=== PATIENT | female | born 1940 | race Caucasian/White ===

== ENCOUNTER 2021-09-26 14:35 | Observation (INO) | payer OTHER ==
[2021-09-26] MEDS: SODIUM CHLORIDE 1,000 ML IV SCH (15:00)
[2021-09-26 15:21] LABS: BASO % 0.8 % (0-2.0); EOS % 0.8 % (0-4.5); HEMATOCRIT 37.1 % (32.4-45.2); HEMOGLOBIN 12.8 GM/dL (10.7-15.3); LYMPH % 31.8 % (8-40); MCH 31.1 pg (25.7-33.7); MCHC 34.6 g/dl (32.0-36.0); MEAN CELL VOLUME 89.9 fl (80-96); MEAN PLT VOLUME 8.8 fl (7.5-11.1); MONO % 4.4 % (3.8-10.2); NEUT % 62.2 % (42.8-82.8); PLATELET COUNT 208 10^3/uL (134-434); RBC 4.12 M/mm3 (3.60-5.2); RDW 14.1 % (11.6-15.6); WHITE BLOOD COUNT 5.9 K/mm3 (4.0-10.0)
[2021-09-26 15:28] LABS: INR 0.91 (0.83-1.09); PROTHROMBIN TIME (PATIENT) 10.4 SEC (9.7-13.0)
[2021-09-26 15:31] LABS: ACTIVATED PTT 26.5 SECONDS (25.2-36.5)
[2021-09-26 15:45] LABS: ALBUMIN 3.9 g/dl (3.4-5.0); CALCIUM 9.1 mg/dL (8.5-10.1)
[2021-09-26 15:47] LABS: BLOOD UREA NITROGEN 26.8 mg/dL (7-18)
[2021-09-26 15:49] LABS: CREATININE 0.9 mg/dL (0.55-1.3)
[2021-09-26 15:50] LABS: TOT PROT 8.3 g/dl (6.4-8.2)
[2021-09-26 15:51] LABS: BILIRUBIN,TOTAL 0.4 mg/dL (0.2-1)
[2021-09-26 16:44] LABS: EPI CELLS 3 /uL (0-25.1); HYALINE CASTS 0 /uL (0-3.1); PH,URINE 5.5 (5.0-8.0); URINE APPEARANCE CLEAR; URINE BACTERIA 7627 /uL (0-1359); URINE BILIRUBIN NEGATIVE (NEGATIVE); URINE COLOR YELLOW; URINE GLUCOSE (UA) 1+ (NEGATIVE); URINE KETONE NEGATIVE (NEGATIVE); URINE LEUK ESTERASE TRACE (NEGATIVE); URINE NITRITE NEGATIVE (NEGATIVE); URINE PROTEIN NEGATIVE (NEGATIVE); URINE RBC 1 /uL (0-23.9); URINE UROBILINOGEN 0.2 mg/dL (0.2-1.0); URINE WBC 27 /uL (0-25.8)
[2021-09-26] MEDS ORDERED: ASPIRIN 81 MG CHEWABLE TABLETS PO ONE (18:17)
[2021-09-26] MEDS ORDERED: ASPIRIN 81 MG CHEWABLE TABLETS ONE (19:00)
[2021-09-26] MEDS ORDERED: ATORVASTATIN CA 40 MG TABLET (FP) ONE (22:14)
[2021-09-26] MEDS: INSULIN SLIDING SCALE (NOVOLOG) 1 VIAL SQ SCH (22:18)
[2021-09-26] MEDS: ATORVASTATIN CA 80 MG TABLET (FP) PO SCH (22:19)
[2021-09-26 23:15] VITALS: BMI 25.7
[2021-09-27] MEDS: INSULIN SLIDING SCALE (NOVOLOG) 1 VIAL SQ SCH ×4 (06:33→21:40)
[2021-09-27 08:24] LABS: HEMATOCRIT 34.8 % (32.4-45.2); HEMOGLOBIN 12.1 GM/dL (10.7-15.3); MCH 31.3 pg (25.7-33.7); MCHC 34.7 g/dl (32.0-36.0); MEAN CELL VOLUME 90.2 fl (80-96); MEAN PLT VOLUME 8.8 fl (7.5-11.1); PLATELET COUNT 195 10^3/uL (134-434); RBC 3.86 M/mm3 (3.60-5.2); RDW 13.4 % (11.6-15.6); WHITE BLOOD COUNT 5.3 K/mm3 (4.0-10.0)
[2021-09-27 08:44] LABS: CALCIUM 8.5 mg/dL (8.5-10.1)
[2021-09-27 08:45] LABS: BLOOD UREA NITROGEN 24.8 mg/dL (7-18); MAGNESIUM 2.2 mg/dL (1.8-2.4)
[2021-09-27 08:48] LABS: CREATININE 0.9 mg/dL (0.55-1.3); PHOSPHOROUS 4.1 mg/dL (2.5-4.9)
[2021-09-27] MEDS: ASPIRIN COATED 81 MG TABLET.EC PO SCH (10:00)
[2021-09-27] MEDS: ENOXAPARIN NA (PORCINE) 40 MG/0.4 ML DISP.SYRIN SQ SCH (10:00)
[2021-09-27] MEDS: LOSARTAN POTASSIUM 50 MG TABLET PO SCH (10:00)
[2021-09-27] MEDS: amLODIPine BESYLATE 2.5 MG TABLET (FP) PO SCH (10:00)
[2021-09-27] MEDS: SODIUM CHLORIDE 1,000 ML IV SCH (14:45)
[2021-09-27] MEDS ORDERED: ATORVASTATIN CA 40 MG TABLET (FP) ONE (21:12)
[2021-09-27] MEDS: ATORVASTATIN CA 80 MG TABLET (FP) PO SCH (21:35)
[2021-09-28] MEDS: INSULIN SLIDING SCALE (NOVOLOG) 1 VIAL SQ SCH ×4 (06:12→21:20)
[2021-09-28 08:56] LABS: BASO % 0.7 % (0-2.0); EOS % 1.6 % (0-4.5); HEMATOCRIT 35.5 % (32.4-45.2); HEMOGLOBIN 11.9 GM/dL (10.7-15.3); LYMPH % 42.3 % (8-40); MCH 30.6 pg (25.7-33.7); MCHC 33.6 g/dl (32.0-36.0); MEAN CELL VOLUME 90.9 fl (80-96); MEAN PLT VOLUME 9.1 fl (7.5-11.1); MONO % 5.9 % (3.8-10.2); NEUT % 49.5 % (42.8-82.8); PLATELET COUNT 204 10^3/uL (134-434); RDW 13.8 % (11.6-15.6); WHITE BLOOD COUNT 5.1 K/mm3 (4.0-10.0)
[2021-09-28 09:14] LABS: ALBUMIN 3.2 g/dl (3.4-5.0); BLOOD UREA NITROGEN 22.5 mg/dL (7-18); CALCIUM 8.7 mg/dL (8.5-10.1); MAGNESIUM 2.2 mg/dL (1.8-2.4)
[2021-09-28 09:16] LABS: CREATININE 0.8 mg/dL (0.55-1.3); PHOSPHOROUS 4.2 mg/dL (2.5-4.9)
[2021-09-28 09:18] LABS: TOT PROT 6.7 g/dl (6.4-8.2)
[2021-09-28 09:19] LABS: BILIRUBIN,TOTAL 0.4 mg/dL (0.2-1)
[2021-09-28] MEDS: ENOXAPARIN NA (PORCINE) 40 MG/0.4 ML DISP.SYRIN SQ SCH (09:29)
[2021-09-28] MEDS: LOSARTAN POTASSIUM 50 MG TABLET PO SCH (09:29)
[2021-09-28] MEDS: amLODIPine BESYLATE 2.5 MG TABLET (FP) PO SCH (09:29)
[2021-09-28] MEDS: ASPIRIN COATED 81 MG TABLET.EC PO SCH (09:29)
[2021-09-28] MEDS: SODIUM CHLORIDE 1,000 ML IV SCH (14:45)
[2021-09-28] MEDS ORDERED: ATORVASTATIN CA 40 MG TABLET (FP) ONE (21:17)
[2021-09-28] MEDS: ATORVASTATIN CA 80 MG TABLET (FP) PO SCH (21:20)
[2021-09-28] MEDS ORDERED: PATIENT'S OWN MEDICATION (NON-FORMULARY) (Latanoprost/Pf [Latanoprost 0.005% Eye Drop] 7.5 OP SCH (22:00)
[2021-09-29] MEDS: INSULIN SLIDING SCALE (NOVOLOG) 1 VIAL SQ SCH ×4 (06:36→21:14)
[2021-09-29] MEDS: amLODIPine BESYLATE 2.5 MG TABLET (FP) PO SCH (09:01)
[2021-09-29] MEDS: ENOXAPARIN NA (PORCINE) 40 MG/0.4 ML DISP.SYRIN SQ SCH (09:01)
[2021-09-29] MEDS: LOSARTAN POTASSIUM 50 MG TABLET PO SCH (09:01)
[2021-09-29] MEDS: ASPIRIN COATED 81 MG TABLET.EC PO SCH (09:01)
[2021-09-29] MEDS: SODIUM CHLORIDE 1,000 ML IV SCH (14:45)
[2021-09-29] MEDS ORDERED: ATORVASTATIN CA 40 MG TABLET (FP) ONE (21:11)
[2021-09-29] MEDS: ATORVASTATIN CA 80 MG TABLET (FP) PO SCH (21:16)
[2021-09-30 05:59] VITALS: PULSE 78
[2021-09-30] MEDS: INSULIN SLIDING SCALE (NOVOLOG) 1 VIAL SQ SCH ×3 (06:00→16:37)
[2021-09-30 08:58] VITALS: BP 139/72; TEMP 98
[2021-09-30] MEDS: amLODIPine BESYLATE 2.5 MG TABLET (FP) PO SCH (09:20)
[2021-09-30] MEDS: ASPIRIN COATED 81 MG TABLET.EC PO SCH (09:20)
[2021-09-30] MEDS: LOSARTAN POTASSIUM 50 MG TABLET PO SCH (09:20)
[2021-09-30] MEDS: ENOXAPARIN NA (PORCINE) 40 MG/0.4 ML DISP.SYRIN SQ SCH (09:21)
[2021-09-30] MEDS: SODIUM CHLORIDE 1,000 ML IV SCH (15:00)
== END 2021-09-30 18:19 | disposition home or self-care (01) ==
LOC: JER 14:35 → JERBED 15:48 → J4S 21:56
PROVIDERS: ADMIT Internal Medicine
PROC: 3E023GC Introduction of Other Therapeutic Substance into Muscle, Percutaneous Approach (ICD-10-PCS; principal; 2021-09-26)
PROC: 3E013VG Introduction of Insulin into Subcutaneous Tissue, Percutaneous Approach (ICD-10-PCS; 2021-09-26)
DX: G51.0 Bell's palsy (principal); E11.9 Type 2 diabetes mellitus without complications; I10 Essential (primary) hypertension; H53.9 Unspecified visual disturbance; E78.5 Hyperlipidemia, unspecified
CPT/HCPCS: 36415; 70450-TC; 70544-TC; 70551-TC; 80048; 80053; 80061; 81003; 82550; 82553; 82962; 83036; 83519; 83735; 84100; 84132; 84443; 84484; 85025; 85027; 85610; 85651; 85730; 86850; 86900; 86901; 87086; 87186; 93005; 93010; 93306-TC; 93880-TC; 96372; 97116-GP; 97161-GP; 99285-25; C9803; G0378; U0003; U0005